=== PATIENT | female | born 1930 | race Caucasian/White ===

== ENCOUNTER 2018-09-04 13:08 | Emergency (ER) | payer OTHER ==
--- OUTSIDE RECORDS SUMMARY | 2018-09-04 13:11 | XMS REPORT | Clinical Summary ---
:1930 Author Organization [facility] Address [address] [place] [address] Care Team Providers Name Role Phone Sharpdaria Primary Care Provider Allergies Active Allergy Reactions Severity Noted Date Comments Penicillins Rash Low 07/17/2015 Medications Medication Sig Dispensed Refills Start Date End Date Status amLODIPine (NORVASC) 10 MG Take 10 mg 0 Active tabletIndications: by mouth hypertension daily. memantine (NAMENDA) 10 MG Take 10 mg 0 Active tablet by mouth daily. cholecalciferol (VITAMIN D3) Take 1,000 0 Active 1,000 unit Units by tabletIndications: mouth daily. osteomalacia metoprolol (TOPROL-XL) 100 Take 100 mg 0 Active MG 24 hr tabletIndications: by mouth hypertension daily. pravastatin (PRAVACHOL) 40 Take 40 mg 0 Active MG tabletIndications: by mouth hypercholesterolemia nightly. raloxifene (EVISTA) 60 mg Take 60 mg 0 Active tabletIndications: by mouth Post-Menopausal Osteoporosis daily. omeprazole (PRILOSEC) 20 MG Take 20 mg 0 Active capsuleIndications: by mouth gastroesophageal reflux daily. disease metaxalone (SKELAXIN) 800 MG Take 800 mg 0 Active tablet by mouth nightly. Active Problems Problem Noted Date Colitis 01/08/2016 Diarrhea 01/08/2016 Loss of appetite 01/08/2016 Dehydration 01/08/2016 Abdominal pain 01/08/2016 Muscle spasm 01/08/2016 GERD (gastroesophageal reflux disease) 01/08/2016 Ischemic colitis 07/17/2015 Immunizations Name Dates Previously Given Next Due Influenza Three-TIV PF 4+YRS 07/18/2015 Social History Tobacco Use Types Packs/Day Years Used Date Former Smoker Quit: 12/15/1974 Alcohol Use Drinks/Week oz/Week Comments No Sex Assigned at Date Recorded Not on file Job Start Date Occupation Industry Not on file Not on file Not on file Travel History Travel Start Travel End No recent travel history available. Last Filed Vital Signs Not on file Plan of Treatment Not on file Results Not on fileafter 09/03/2017 Insurance Payer Benefit Plan / Group Subscriber ID Type Phone Address MEDICARE MEDICARE A B xxxxxxxxxx Medicare AETNA - [place]GD CARE AETNA INDEMNITY NON CONTR xxxxxxxxxx Comm Advance Directives For more information, please contact:[address] [phone] Code Status Date Activated Date Inactivated Comments Full Code 07/17/2015 3:50 AM 07/19/2015 9:20 PM Per MD's order, verbalized by patient's daughter Mary This code status was determined by: Patient
--- NOTE | 2018-09-04 14:16 | RAD REPORT ---
EXAM DESCRIPTION: Eva Single View09/04/2018 1:55 pm CLINICAL HISTORY: cough COMPARISON: none FINDINGS: The lungs appear clear of acute infiltrate. The heart is normal size IMPRESSION: No acute abnormalities displayed
[2018-09-04 14:19] LABS: Absolute Lymphocytes (CBC) 1.9 K/uL (0.7-4.9); Absolute Monocytes 1.1 K/uL (0.1-1.3); Basophils % 0.5 % (0-1.3); Eosinophils % 0.1 % (0-4.4); Lymphocytes % 17.4 % (15.3-44.8); MCH 29.9 pg (27.0-35.0); MCV 87.9 fL (80-100); Monocytes % 10.1 % (3.3-12.3); RBC Red Blood Cell Count 4.89 M/uL (3.86-4.86)
[2018-09-04] MEDS ORDERED: AZITHROMYCIN 500 MG/250 ML BAG ONE (14:22)
[2018-09-04 14:30] LABS: Protime INR 1.07
[2018-09-04 14:40] LABS: ALT/SGPT 16 U/L (12-78); AST/SGOT 17 U/L (15-37); Albumin 3.9 g/dL (3.4-5.0); Alkaline Phosphatase 157 U/L (45-117); BUN Blood Urea Nitrogen 21 mg/dL (7-18); Bicarbonate 28 mmol/L (21-32); Bilirubin Direct 0.2 mg/dL (0-0.2); Bilirubin Total 0.6 mg/dL (0.2-1.0); CKMB Creatine Kinase MB < 1.0 ng/mL (0.3-3.6); Creatine Phosphokinase 52 U/L (26-192); Glucose Level 99 mg/dL (74-106); Lipase 176 U/L (73-393); Magnesium 2.3 mg/dL (1.8-2.4); NT PRO-BNP 1265 pg/mL (<450); Potassium 3.9 mmol/L (3.5-5.1); Sodium Level 140 mmol/L (136-145); Troponin (Emerg Dept Use Only) < 0.02 ng/mL (0.0-0.045)
--- NOTE | 2018-09-04 14:44 | EKG ---
Test Date: 2018-09-04 Test Time: 13:55:57 Director Volunteer Services: MAYE MEASUREMENT RESULTS: Intervals: Rate: 81 WV: 156 QRSD: 78 QT: 380 QTc: 441 Homer: P: 63 WV: 156 QRS: 0 T: 27 INTERPRETIVE STATEMENTS: Normal sinus rhythm Nonspecific ST and T wave abnormality Abnormal ECG Compared to ECG 07/30/2016 20:11:33 ST (T wave) deviation now present Atrial premature complex(es) no longer present Electronically Signed On 09-04-18 14:44:00 TEST ENG by Yaniv Levin
--- NOTE | 2018-09-04 15:51 | RAD REPORT ---
EXAM DESCRIPTION: CT - Chest For Pe Angio - 09/04/2018 3:19 pm CLINICAL HISTORY: Shortness of breath for 1 week COMPARISON: None. TECHNIQUE: Dynamically enhanced axial 3 mm thick images of the chest were obtained during administra tion of <100> mL Isovue 370 IV contrast. Coronal and oblique reconstruction images were generated and reviewed. Exam utilizes a protocol for optimal evaluation of pulmonary arterial tree. Maximum intensity projections 3D imaging was utilized All CT scans are performed using dose optimization technique as appropriate and may include automated exposure control or mA/KV adjustment according to patient size. FINDINGS: A pulmonary embolus is not seen. A thoracic aortic aneurysm is not noted. A pleural effusion is not seen. A pericardial effusion is not seen. A lung consolidation is not present. IMPRESSION: Negative for a pulmonary embolism.
--- NOTE | 2018-09-04 16:15 | EDPHYS ---
Physician Documentation [facility] Name: Wellington Wood Age: 88 yrs Sex: Female : 1930 Arrival Date: 09/04/2018 Time: 13:09 Bed 27 Private MD: ED Physician Karen Mariscal HPI: 09/04 13:43 This 88 yrs old Female presents to ER via Wheelchair with complaints of Cough.ma2 13:43 Onset: The symptoms/episode began/occurred gradually, 2 day(s) ago. Severity of ma2 symptoms: At their worst the symptoms were moderate, in the emergency department the symptoms are unchanged. Modifying factors: The symptoms are alleviated by nothing. Associated signs and symptoms: Pertinent negatives: chest pain, diarrhea, fever, rhinorrhea, sore throat. The patient has experienced similar episodes in the past. Historical: - Allergies: 13:32 PENICILLINS; aa5 - PMHx: 13:32 Dementia; High Cholesterol; Hypertension; aa5 - PSHx: 13:32 Hysterectomy; back surgery; Tonsillectomy; aa5 - Immunization history:: Pneumococcal vaccine status is unknown, Flu vaccine is up to date. - Social history:: Smoking status: Patient/guardian denies using tobacco, Patient/guardian denies using alcohol, street drugs, The patient lives with family. - Ebola Screening: : No symptoms or risks identified at this time. - Family history:: not pertinent. ROS: 13:43 Eyes: Negative for injury, pain, redness, and discharge, ENT: Negative for injury, ma2 pain, and discharge, Neck: Negative for injury, pain, and swelling, Cardiovascular: Negative for chest pain, palpitations, and edema, Abdomen/GI: Negative for abdominal pain, nausea, diarrhea, and constipation, Back: Negative for injury and pain, : Negative for injury, bleeding, discharge, and swelling. 13:43 Constitutional: Positive for fever, Negative for chills, fatigue, malaise, poor PO intake. 13:43 Respiratory: Positive for cough, Negative for dyspnea on exertion, hemoptysis, orthopnea, shortness of breath, sputum production. 13:43 All other systems are negative. Exam: 13:43 Constitutional: This is a well developed, well nourished patient who is awake, alert, ma2 and in no acute distress. Chest/axilla: Normal chest wall appearance and motion. Nontender with no deformity. No lesions are appreciated. Cardiovascular: Regular rate and rhythm with a normal S1 and S2. No gallops, murmurs, or rubs. Normal PMI, no JVD. No pulse deficits. Respiratory: Lungs have equal breath sounds bilaterally, clear to auscultation and percussion. No rales, rhonchi or wheezes noted. No increased work of breathing, no retractions or nasal flaring. Abdomen/GI: Soft, non-tender, with normal bowel sounds. No distension or tympany. No guarding or rebound. No evidence of tenderness throughout. MS/ Extremity: Pulses equal, no cyanosis. Neurovascular intact. Full, normal range of motion. Neuro: Awake and alert, GCS 15, oriented to person, place, time, and situation. Cranial nerves II-XII grossly intact. Motor strength 5/5 in all extremities. Sensory grossly intact. Cerebellar exam normal. Normal gait. Vital Signs: 13:33 BP 147 / 67; Pulse 78; Resp 18 S; Temp 99.8(O); Pulse Ox 96% on R/A; Weight 66.22 kg aa5 (R); Height 5 ft. 0 in. (152.40 cm) (R); Pain 0/10; 15:30 BP 138 / 74; Pulse 80; Resp 17; Temp 98.2; Pulse Ox 97% on R/A; kr2 16:30 BP 144 / 70; Pulse 74; Resp 17; Pulse Ox 97% on R/A; kr2 13:33 Body Mass Index 28.51 (66.22 kg, 152.40 cm) aa5 MDM: 13:37 Patient medically screened. ma2 13:43 Differential Diagnosis: Bronchitis Influenza Upper Respiratory Infection Sinusitis. ma2 16:12 Data reviewed: vital signs, nurses notes, lab test result(s), EKG, radiologic studies. ma2 Counseling: I had a detailed discussion with the patient and/or guardian regarding: the historical points, exam findings, and any diagnostic results supporting the discharge/admit diagnosis, the presence of at least one elevated blood pressure reading (>120/80) during this emergency department visit, the need for outpatient follow up. ED course: d dimer elevated ct pe negative likely uri vs wnl, workup unremarkable including normal WBC.. bnp is elevated however given normal cxr and symptoms of sore throat,, acute chf unlikely will f/u with pcp . 09/04 13:42 Order name: Blood Culture Adult (2) [facility] 09/04 13:42 Order name: BMP [facility] 09/04 13:42 Order name: CBC with Diff [facility] 09/04 13:42 Order name: Ckmb [facility] 09/04 13:42 Order name: CPK [facility] 09/04 13:42 Order name: D-Dimer [facility] 09/04 13:42 Order name: Hepatic Function; Complete Time: 15:36 [facility] 09/04 13:42 Order name: Lipase; Complete Time: 15:36 [facility] 09/04 13:42 Order name: Magnesium; Complete Time: 15:36 [facility] 09/04 13:42 Order name: NT PRO-BNP; Complete Time: 15:36 [facility] 09/04 13:42 Order name: PT-INR; Complete Time: 14:36 [facility] 09/04 13:42 Order name: Ptt, Activated; Complete Time: 14:36 [facility] 09/04 13:42 Order name: Troponin (emerg Dept Use Only); Complete Time: 15:36 [facility] 09/04 13:43 Order name: Blood Culture [facility] 09/04 13:42 Order name: XRAY CXR (1 view); Complete Time: 14:19 [facility] 09/04 13:42 Order name: EKG; Complete Time: 13:44 [facility] 09/04 13:42 Order name: Cardiac monitoring; Complete Time: 14:22 [facility] 09/04 13:42 Order name: EKG - Nurse/Tech; Complete Time: 14:22 [facility] 09/04 13:42 Order name: IV Saline Lock; Complete Time: 14:22 [facility] 09/04 13:42 Order name: Labs collected and sent; Complete Time: 14:22 [facility] 09/04 13:42 Order name: O2 Per Protocol; Complete Time: 14:22 [facility] 09/04 13:42 Order name: O2 Sat Monitoring; Complete Time: 14:23 [facility] 09/04 13:43 Order name: Basic Metabolic Panel; Complete Time: 15:36 [facility] 09/04 13:43 Order name: CBC with Automated Diff; Complete Time: 14:36 [facility] 09/04 13:43 Order name: CKMB Creatine Kinase MB; Complete Time: 15:36 [facility] 09/04 13:43 Order name: Creatine Phosphokinase; Complete Time: 15:36 [facility] 09/04 13:43 Order name: D-Dimer; Complete Time: 14:36 [facility] 09/04 14:37 Order name: CT Chest For PE Angio; Complete Time: 16:12 ne2 Administered Medications: 14:18 Drug: AZITHromycin 500 mg Route: IVPB; Infused Over: 1 hrs; Site: right antecubital; kr2 15:30 Follow up: Response: No adverse reaction; IV Status: Completed infusion kr2 Disposition: 09/04/18 16:15 Discharged to Home. Impression: Acute upper respiratory infection, unspecified. - Condition is Stable. - Discharge Instructions: Upper Respiratory Infection, Adult. - Prescriptions for Tylenol- Codeine #3 300-30 mg Oral Tablet - take 2 tablet by ORAL route every 6 hours As needed; 30 tablet. Zithromax Z- Alfred 250 mg Oral Tablet - take 1 tablet by ORAL route as directed for 5 days Day 1 - take two (2) tablets one time. Day 2, 3, 4 , 5 take one (1) tablet once daily.; 6 tablet. - Medication Reconciliation Form, Thank You Letter, Antibiotic Education, Prescription Opioid Use form. - Follow up: Private Physician; When: Tomorrow; Reason: Continuance of care. - Problem is new. - Symptoms are unchanged. Signatures: Dispatcher [employer] [facility] Nimo Jeffers RN RN aa5 Maura Short RN RN kr2 Karen Mariscal MD MD ma2 Corrections: (The following items were deleted from the chart) 16:39 16:15 09/04/2018 16:15 Discharged to Home. Impression: Acute upper respiratory kr2 infection, unspecified. Condition is Stable. Forms are Medication Reconciliation Form, Thank You Letter, Antibiotic Education, Prescription Opioid Use. Follow up: Private Physician; When: Tomorrow; Reason: Continuance of care. Problem is new. Symptoms are unchanged. ma2
--- NOTE | 2018-09-04 16:15 | ER ---
Nurse's Notes [facility] Name: Wellington Wood Age: 88 yrs Sex: Female : 1930 Arrival Date: 09/04/2018 Time: 13:09 Bed 27 Private MD: Diagnosis: Acute upper respiratory infection, unspecified Presentation: 09/04 13:31 Presenting complaint: Patient states: cough that began 1 week ago. Pt reports being aa5 seen by Dr. Bolden and given Claritin. Pt also reports fever up to 100.1 Today. Transition of care: patient was not received from another setting of care. Onset of symptoms was August 2018. Risk Assessment: Do you want to hurt yourself or someone else? Patient reports no desire to harm self or others. Initial Sepsis Screen: Does the patient meet any 2 criteria? No. Patient's initial sepsis screen is negative. Does the patient have a suspected source of infection? No. Patient's initial sepsis screen is negative. Care prior to arrival: None. 13:31 Method Of Arrival: Wheelchair aa5 13:31 Acuity: ESE 3 aa5 Triage Assessment: 13:45 General: Appears in no apparent distress. comfortable, Behavior is calm, cooperative, kr2 appropriate for age. Historical: - Allergies: 13:32 PENICILLINS; aa5 - PMHx: 13:32 Dementia; High Cholesterol; Hypertension; aa5 - PSHx: 13:32 Hysterectomy; back surgery; Tonsillectomy; aa5 - Immunization history:: Pneumococcal vaccine status is unknown, Flu vaccine is up to date. - Social history:: Smoking status: Patient/guardian denies using tobacco, Patient/guardian denies using alcohol, street drugs, The patient lives with family. - Ebola Screening: : No symptoms or risks identified at this time. - Family history:: not pertinent. Screenin:00 Abuse screen: Denies threats or abuse. Denies injuries from another. Nutritional kr2 screening: No deficits noted. Tuberculosis screening: No symptoms or risk factors identified. Fall Risk Ambulatory Aid- Crutches/Cane/Walker (15 pts). Assessment: 13:45 General: Appears in no apparent distress. comfortable, well groomed, well developed, kr2 well nourished, Behavior is calm, cooperative, appropriate for age. Pain: Denies pain. Neuro: Level of Consciousness is awake, alert, obeys commands, Oriented to person, place, time, situation. Cardiovascular: Capillary refill < 3 seconds in bilateral fingers Patient's skin is warm and dry. Rhythm is regular. Respiratory: Reports cough that is persistent since 1 week ago Airway is patent Respiratory effort is even, unlabored, Respiratory pattern is regular, symmetrical, Breath sounds are clear bilaterally. GI: Abdomen is flat, non-distended, Bowel sounds present X 4 quads. : Denies burning with urination. EENT: Oral mucosa is moist. Derm: Skin is intact, is healthy with good turgor, Skin is pink, warm \T\ dry. Musculoskeletal: Circulation, motion, and sensation intact. 14:30 Reassessment: Patient appears in no apparent distress at this time. Patient and/or kr2 family updated on plan of care and expected duration. Pain level reassessed. Patient is alert, oriented x 3, equal unlabored respirations, skin warm/dry/pink. Patient denies pain at this time. 15:30 Reassessment: Patient appears in no apparent distress at this time. Patient and/or kr2 family updated on plan of care and expected duration. Pain level reassessed. Patient is alert, oriented x 3, equal unlabored respirations, skin warm/dry/pink. Patient denies pain at this time. 16:30 Reassessment: No changes from previously documented assessment. kr2 Vital Signs: 13:33 BP 147 / 67; Pulse 78; Resp 18 S; Temp 99.8(O); Pulse Ox 96% on R/A; Weight 66.22 kg aa5 (R); Height 5 ft. 0 in. (152.40 cm) (R); Pain 0/10; 15:30 BP 138 / 74; Pulse 80; Resp 17; Temp 98.2; Pulse Ox 97% on R/A; kr2 16:30 BP 144 / 70; Pulse 74; Resp 17; Pulse Ox 97% on R/A; kr2 13:33 Body Mass Index 28.51 (66.22 kg, 152.40 cm) aa5 ED Course: 13:09 Patient arrived in ED. aa5 13:31 Arm band placed on. aa5 13:32 Triage completed. aa5 13:37 Karen Mariscal MD is Attending Physician. ma2 13:43 Deja, Maura, RN is Primary Nurse. kr2 13:45 Patient has correct armband on for positive identification. Bed in low position. Call kr2 light in reach. Side rails up X 1. Pulse ox on. NIBP on. Door closed. Head of bed elevated. 13:54 XRAY CXR (1 view) In Process Unspecified. EDMS 14:00 Inserted saline lock: 22 gauge in right antecubital area, using aseptic technique. kr2 Blood collected. 14:13 EKG done, by low voltage technician. reviewed by Karen Mariscal MD. at1 14:[address] via stretcher. vm2 15:19 CT Chest For PE Angio In Process Unspecified. EDMS 16:30 No provider procedures requiring assistance completed. IV discontinued, intact, kr2 bleeding controlled, No redness/swelling at site. Pressure dressing applied. Administered Medications: 14:18 Drug: AZITHromycin 500 mg Route: IVPB; Infused Over: 1 hrs; Site: right antecubital; kr2 15:30 Follow up: Response: No adverse reaction; IV Status: Completed infusion kr2 Outcome: 16:15 Discharge ordered by . ma2 16:30 Discharged to home via wheelchair, with family. kr2 16:30 Condition: good 16:30 Instructed on discharge instructions, follow up and referral plans. medication usage, Demonstrated understanding of instructions, follow-up care, medications, Prescriptions given X 2. 16:39 Patient left the ED. kr2 Signatures: Dispatcher [employer] EDMS Nimo Jeffers RN RN aa5 Hemalatha Grace, electrical panel builder EKG Tat1 Rani Adames vm2 Maura Short, BONG RN kr2 Karen Mariscal MD MD tn2 Corrections: (The following items were deleted from the chart) 22:49 13:45 Door closed. Warm blanket given. Head of bed elevated. kr2 kr2 23:07 15:30 BP 138 / 74; Pulse 80bpm; Resp 17bpm; Pulse Ox 97% RA; kr2 kr2
[2018-09-04 16:56] VITALS: BP 147/67; TEMP 99.8; O2SAT 96
== END 2018-09-04 16:39 | disposition home or self-care (01) ==
LOC: ER 13:08
DX: J06.9 Acute upper respiratory infection, unspecified (principal); I10 Essential (primary) hypertension; F03.90 Unspecified dementia, unspecified severity, without behavioral disturbance, psychotic disturbance, mood disturbance, and anxiety; Z88.0 Allergy status to penicillin
CPT/HCPCS: 36415; 71045; 71275; 80048; 80076; 82550; 82553; 83690; 83735; 83880; 84484; 85025; 85379; 85610; 85730; 87040 ×2; 93005; 96365; 99285; J0456; Q9967

== ENCOUNTER 2018-11-21 12:28 | Emergency (ER) | payer OTHER ==
--- OUTSIDE RECORDS SUMMARY | 2018-11-21 12:35 | XMS REPORT | Clinical Summary ---
:1930 Author Organization [facility] Address [address] [place] [address] Care Team Providers Name Role Phone Sharpdaria [...] Not on file Results Not on fileafter 11/20/2017 Insurance Payer Benefit Plan / Group Subscriber ID Type Phone Address MEDICARE MEDICARE A B xxxxxxxxxx Medicare AETNA - MGD CARE AETNA INDEMNITY NON CONTR xxxxxxxxxx Comm Advance Directives For more information, please contact:[address] [phone] Code Status Date Activated Date Inactivated Comments Full Code 07/17/2015 3:50 AM 07/19/2015 9:20 PM Per MD's order, verbalized by patient's daughter Mary This code status was determined by: Patient
[2018-11-21 16:01] LABS: Hematocrit 42.7 % (36.0-45.0); MPV 10.4 fL (7.6-11.3); RBC Red Blood Cell Count 4.88 M/uL (3.86-4.86)
--- NOTE | 2018-11-21 17:14 | EDPHYS ---
Physician Documentation [facility] Name: Wellington Wood Age: 88 yrs Sex: Female : 1930 Arrival Date: 11/21/2018 Time: 12:41 Bed 11 Private MD: ED Physician Karen Mariscal HPI: 11/21 16:08 This 88 yrs old Female presents to ER via Wheelchair with complaints of ma2 Urinary Problem. 16:08 The patient presents with dark urine x 1 day, urinary frequency and take nitrofurantoin ma2 x 2 days . Onset: The symptoms/episode began/occurred gradually, 2 day(s) ago. Associated signs and symptoms: Pertinent positives: urinary frequency, Pertinent negatives: dyspareunia, fever, vaginal discharge. Severity of symptoms: At their worst the symptoms were mild, in the emergency department the symptoms have resolved. The patient has experienced similar episodes in the past. Historical: - Allergies: 12:57 PENICILLINS; hb - Home Meds: 12:57 amlodipine 10 mg tab 1 tab once daily [Active]; aspirin 81 mg Oral TbEC 1 tab once hb daily [Active]; Colace 50 mg Oral cap 1 cap 2 times per day [Active]; Evista 60 mg Oral tab 1 tab once daily [Active]; losartan 100 mg Oral tab 1 tab once daily [Active]; metoprolol tartrate 100 mg Oral tab 1 tab once daily [Active]; multivitamins with iron [Active]; omeprazole 20 mg Oral TbEC daily [Active]; pravastatin 40 mg Oral tab 1 tab once daily [Active]; prevagen [Active]; Skelaxin 800 mg Oral tab 1 tab daily [Active]; Namzaric 28-10 mg Oral CSpX 1 cap once daily [Active]; Vitamin D-3 with Aloe 120-1,000-10 mg-unit-mg Oral tab [Active]; - PMHx: 12:57 High Cholesterol; Dementia; Hypertension; hb - PSHx: 12:57 Hysterectomy; back surgery; Tonsillectomy; hb - Immunization history:: Flu vaccine status is unknown. - Social history:: Patient/guardian denies using alcohol, street drugs, The patient lives with family, Smoking status: unknown. - Family history:: not pertinent. - Ebola Screening: : No symptoms or risks identified at this time. ROS: 16:08 Positive for urinary symptoms, urinary frequency, Negative for injury or acute ma2 deformity, flank pain, burning with urination, bladder incontinence, vaginal itching, missed period, acute changes. 16:08 Constitutional: Negative for fever, chills, and weight loss, Eyes: Negative for injury, pain, redness, and discharge, Cardiovascular: Negative for chest pain, palpitations, and edema, Respiratory: Negative for shortness of breath, cough, wheezing, and pleuritic chest pain, Abdomen/GI: Negative for abdominal pain, nausea, diarrhea, and constipation. 16:08 All other systems are negative. Exam: 16:08 Constitutional: This is a well developed, well nourished patient who is awake, alert, ma2 and in no acute distress. Chest/axilla: Normal chest wall appearance and motion. Nontender with no deformity. No lesions are appreciated. Cardiovascular: Regular rate and rhythm with a normal S1 and S2. No gallops, murmurs, or rubs. Normal PMI, no JVD. No pulse deficits. Respiratory: Lungs have equal breath sounds bilaterally, clear to auscultation and percussion. No rales, rhonchi or wheezes noted. No increased work of breathing, no retractions or nasal flaring. Abdomen/GI: Soft, non-tender, with normal bowel sounds. No distension or tympany. No guarding or rebound. No evidence of tenderness throughout. Back: No spinal tenderness. No costovertebral tenderness. Full range of motion. MS/ Extremity: Pulses equal, no cyanosis. Neurovascular intact. Full, normal range of motion. Neuro: Awake and alert, GCS 15, oriented to person, place, time, and situation. Cranial nerves II-XII grossly intact. Motor strength 5/5 in all extremities. Sensory grossly intact. Cerebellar exam normal. Normal gait. Vital Signs: 12:56 BP 151 / 60; Pulse 84; Resp 16; Temp 97.4; Pulse Ox 100% on R/A; Pain 0/10; hb MDM: 14:33 Patient medically screened. ma2 16:08 Differential diagnosis: nonspecific abdominal pain, urinary tract infection, has ma2 hematuria d/t uti. 17:13 Data reviewed: vital signs, nurses notes. Counseling: I had a detailed discussion with ma2 the patient and/or guardian regarding: the historical points, exam findings, and any diagnostic results supporting the discharge/admit diagnosis, the presence of at least one elevated blood pressure reading (>120/80) during this emergency department visit, the need for outpatient follow up. ED course: HB stable will f/u with her pcp . 11/21 14:15 Order name: Urine Dipstick--Ancillary (enter results) mw2 11/21 14:50 Order name: CBC w/o diff; Complete Time: 17:13 ma2 Administered Medications: No medications were administered Disposition: 11/21/18 17:14 Discharged to Home. Impression: Cystitis, unspecified with hematuria. - Condition is Stable. - Discharge Instructions: Urinary Tract Infection, Adult. - Medication Reconciliation Form, Thank You Letter, Antibiotic Education, Prescription Opioid Use form. - Follow up: Private Physician; When: Tomorrow; Reason: Continuance of care. Signatures: Dispatcher [employer] EDMS Rowena Liu RN RN Karen Mariscal MD MD ma2 Calvin Giron RN RN mg2 Corrections: (The following items were deleted from the chart) 17:36 17:14 11/21/2018 17:14 Discharged to Home. Impression: Cystitis, unspecified with mg2 hematuria. Condition is Stable. Forms are Medication Reconciliation Form, Thank You Letter, Antibiotic Education, Prescription Opioid Use. Follow up: Private Physician; When: Tomorrow; Reason: Continuance of care. ma2
--- NOTE | 2018-11-21 17:14 | ER ---
Nurse's Notes [facility] Name: Wellington Wood Age: 88 yrs Sex: Female : 1930 Arrival Date: 11/21/2018 Time: 12:41 Bed 11 Private MD: Diagnosis: Cystitis, unspecified with hematuria Presentation: 11/21 12:53 Presenting complaint: Recently seen at [facility] for UTI, on nitrofurantoin Day 4, hb daughter noticed dark urine this morning, concerned about possible blood in urine. Pt reports urinary frequency, denies burning with urination/abd pain/fever. Transition of care: patient was not received from another setting of care. Onset of symptoms was November 21, 2018. Risk Assessment: Do you want to hurt yourself or someone else? Patient reports no desire to harm self or others. Care prior to arrival: None. 12:53 Method Of Arrival: Wheelchair hb 12:53 Acuity: ESE 4 hb 17:35 Initial Sepsis Screen: Does the patient meet any 2 criteria? No. Patient's initial mg2 sepsis screen is negative. Does the patient have a suspected source of infection? No. Patient's initial sepsis screen is negative. Triage Assessment: 17:35 General: Appears in no apparent distress. comfortable, Behavior is calm, cooperative. mg2 Pain: Denies pain. Historical: - Allergies: 12:57 PENICILLINS; hb - Home Meds: 12:57 amlodipine 10 mg tab 1 tab once daily [Active]; aspirin 81 mg Oral TbEC 1 tab once hb daily [Active]; Colace 50 mg Oral cap 1 cap 2 times per day [Active]; Evista 60 mg Oral tab 1 tab once daily [Active]; losartan 100 mg Oral tab 1 tab once daily [Active]; metoprolol tartrate 100 mg Oral tab 1 tab once daily [Active]; multivitamins with iron [Active]; omeprazole 20 mg Oral TbEC daily [Active]; pravastatin 40 mg Oral tab 1 tab once daily [Active]; prevagen [Active]; Skelaxin 800 mg Oral tab 1 tab daily [Active]; Namzaric 28-10 mg Oral CSpX 1 cap once daily [Active]; Vitamin D-3 with Aloe 120-1,000-10 mg-unit-mg Oral tab [Active]; - PMHx: 12:57 High Cholesterol; Dementia; Hypertension; hb - PSHx: 12:57 Hysterectomy; back surgery; Tonsillectomy; hb - Immunization history:: Flu vaccine status is unknown. - Social history:: Patient/guardian denies using alcohol, street drugs, The patient lives with family, Smoking status: unknown. - Family history:: not pertinent. - Ebola Screening: : No symptoms or risks identified at this time. Screenin:57 Abuse screen: Denies threats or abuse. Denies injuries from another. Nutritional hb screening: No deficits noted. Tuberculosis screening: No symptoms or risk factors identified. Fall Risk None identified. Assessment: 17:35 Reassessment: patient didn't sign the discharge papers. mg2 Vital Signs: 12:56 BP 151 / 60; Pulse 84; Resp 16; Temp 97.4; Pulse Ox 100% on R/A; Pain 0/10; hb ED Course: 12:41 Patient arrived in ED. as 12:56 Triage completed. hb 12:56 Arm band placed on right wrist. hb 14:33 Karen Mariscal MD is Attending Physician. [facility] 14:48 Calvin Giron, RN is Primary Nurse. mg2 17:35 Allergy band placed. mg2 17:35 No provider procedures requiring assistance completed. Patient did not have IV access mg2 during this emergency room visit. Administered Medications: No medications were administered Outcome: 17:14 Discharge ordered by . ma 17:34 Discharged to home via wheelchair, with family. mg2 17:34 Condition: stable 17:34 Discharge instructions given to patient, Instructed on discharge instructions, follow up and referral plans. Demonstrated understanding of instructions, follow-up care. 17:36 Patient left the ED. mg2 Signatures: Dayanara Acosta Heather, RN RN Karen Mariscal MD MD ma2 Gardose, Michele, RN RN mg2
[2018-11-21 17:59] VITALS: BP 112/64; TEMP 98.9; O2SAT 99
[2018-11-21 19:40] LABS: Urine Blood TRACE (NEG); Urine Glucose NEGATIVE (NEG); Urine Protein 1+ (NEG); Urine pH 6.5 (5.0-7.0)
== END 2018-11-21 17:36 | disposition home or self-care (01) ==
LOC: ER 12:28
DX: N30.91 Cystitis, unspecified with hematuria (principal); E78.00 Pure hypercholesterolemia, unspecified; F03.90 Unspecified dementia, unspecified severity, without behavioral disturbance, psychotic disturbance, mood disturbance, and anxiety; I10 Essential (primary) hypertension; Z79.82 Long term (current) use of aspirin; Z88.0 Allergy status to penicillin
CPT/HCPCS: 36415; 81003; 85027; 99281

== ENCOUNTER 2018-12-08 21:33 | Observation (INO) | payer OTHER ==
--- OUTSIDE RECORDS SUMMARY | 2018-12-08 21:35 | XMS REPORT | Clinical Summary ---
:1930 Author Organization [facility] Address [address] [place] [address] Care Team Providers Name Role Phone Sharpdaria [...] Not on file Results Not on fileafter 12/07/2017 Insurance Payer Benefit Plan / Group Subscriber ID Type Phone Address MEDICARE MEDICARE A B xxxxxxxxxx Medicare AETNA - MGD CARE AETNA INDEMNITY NON CONTR xxxxxxxxxx Comm Advance Directives For more information, please contact:[address] [phone] Code Status Date Activated Date Inactivated Comments Full Code 07/17/2015 3:50 AM 07/19/2015 9:20 PM Per MD's order, verbalized by patient's daughter Mary This code status was determined by: Patient
[2018-12-08] MEDS ORDERED: NA CHLORIDE 0.9% 500 ML ONE (22:48)
[2018-12-08] MEDS ORDERED: NA CHLORIDE 0.9% 1,000 ML ONE (22:48)
[2018-12-08 23:04] LABS: Absolute Lymphocytes (CBC) 2.6 K/uL (0.7-4.9); Absolute Monocytes 0.7 K/uL (0.1-1.3); Absolute Neutrophil 5.9 K/uL (1.8-8.0); Basophils % 0.4 % (0-1.3); Eosinophils % 1.1 % (0-4.4); Hematocrit 40.7 % (36.0-45.0); Lymphocytes % 28.1 % (15.3-44.8); Monocytes % 7.6 % (3.3-12.3); RBC Red Blood Cell Count 4.62 M/uL (3.86-4.86)
[2018-12-08 23:25] LABS: ALT/SGPT 14 U/L (12-78); AST/SGOT 15 U/L (15-37); Albumin 3.4 g/dL (3.4-5.0); Alkaline Phosphatase 167 U/L (45-117); BUN Blood Urea Nitrogen 17 mg/dL (7-18); Bicarbonate 30 mmol/L (21-32); Bilirubin Direct 0.1 mg/dL (0-0.2); Bilirubin Total 0.4 mg/dL (0.2-1.0); Glucose Level 110 mg/dL (74-106); Lipase 232 U/L (73-393); NT PRO-BNP 696 pg/mL (<450); Potassium 3.9 mmol/L (3.5-5.1); Protein, Total 6.8 g/dL (6.4-8.2); Sodium Level 143 mmol/L (136-145); Troponin (Emerg Dept Use Only) < 0.02 ng/mL (0.0-0.045)
[2018-12-08 23:32] LABS: Protime INR 1.07
--- NOTE | 2018-12-08 23:32 | EDPHYS ---
Physician Documentation [facility] Name: Wellington Wood Age: 88 yrs Sex: Female : 1930 Arrival Date: 12/08/2018 Time: 21:37 Bed 4 Private MD: Bk Westbrook ED Physician Devin Zhao HPI: 12/08 22:32 This 88 yrs old Female presents to ER via EMS with complaints of Near Syncope.sammi 22:32 The patient has experienced near-syncope. Onset: The symptoms/episode began/occurred sammi just prior to arrival. Duration: This was a single episode, that lasted 20 minute(s). Context: occurred at home. Associated injury: The patient did not suffer any apparent associated injury. Associated signs and symptoms: Pertinent positives: diaphoresis, lightheadedness, nausea, shortness of breath. Historical: - Allergies: 21:40 PENICILLINS; rr5 - Home Meds: 21:40 amlodipine 10 mg tab 1 tab once daily [Active]; Vitamin D-3 with Aloe 120-1,000-10 rr5 mg-unit-mg Oral tab [Active]; losartan 100 mg Oral tab 1 tab once daily [Active]; prevagen [Active]; multivitamins with iron [Active]; Namzaric 28-10 mg Oral CSpX 1 cap once daily [Active]; metoprolol tartrate 100 mg Oral tab 1 tab once daily [Active]; pravastatin 40 mg Oral tab 1 tab once daily [Active]; Evista 60 mg Oral tab 1 tab once daily [Active]; omeprazole 20 mg Oral TbEC daily [Active]; Skelaxin 800 mg Oral tab 1 tab daily [Active]; Colace 50 mg Oral cap 1 cap 2 times per day [Active]; Aricept 10 mg Oral tab [Active]; aspirin 81 mg Oral TbEC 1 tab once daily [Active]; - PMHx: 21:40 Dementia; High Cholesterol; Hypertension; Alzheimers; rr5 - PSHx: 21:40 Heart stents; Hysterectomy; lumbar surgery; rr5 - Immunization history:: Adult Immunizations up to date. - Social history:: Smoking status: Patient/guardian denies using tobacco, Patient/guardian denies using alcohol, street drugs. - Ebola Screening: : Patient negative for fever greater than or equal to 101.5 degrees Fahrenheit, and additional compatible Ebola Virus Disease symptoms Patient denies exposure to infectious person Patient denies travel to an Ebola-affected area in the 21 days before illness onset. - Family history:: not pertinent. ROS: 22:32 Constitutional: Negative for fever, chills, and weight loss, Eyes: Negative for injury, sammi pain, redness, and discharge, ENT: Negative for injury, pain, and discharge, Neck: Negative for injury, pain, and swelling, Cardiovascular: Negative for chest pain, palpitations, and edema, Respiratory: Negative for shortness of breath, cough, wheezing, and pleuritic chest pain, Abdomen/GI: Negative for abdominal pain, nausea, vomiting, diarrhea, and constipation, Back: Negative for injury and pain, : Negative for injury, bleeding, discharge, and swelling, MS/Extremity: Negative for injury and deformity, Skin: Negative for injury, rash, and discoloration, Neuro: Negative for headache, weakness, numbness, tingling, and seizure, Psych: Negative for depression, anxiety, suicide ideation, homicidal ideation, and hallucinations, Allergy/Immunology: Negative for hives, rash, and allergies, Endocrine: Negative for neck swelling, polydipsia, polyuria, polyphagia, and marked weight changes, Hematologic/Lymphatic: Negative for swollen nodes, abnormal bleeding, and unusual bruising. Exam: 22:33 Constitutional: This is a well developed, well nourished patient who is awake, alert, sammi and in no acute distress. Head/Face: Normocephalic, atraumatic. Eyes: Pupils equal round and reactive to light, extra-ocular motions intact. Lids and lashes normal. Conjunctiva and sclera are non-icteric and not injected. Cornea within normal limits. Periorbital areas with no swelling, redness, or edema. ENT: Nares patent. No nasal discharge, no septal abnormalities noted. Tympanic membranes are normal and external auditory canals are clear. Oropharynx with no redness, swelling, or masses, exudates, or evidence of obstruction, uvula midline. Mucous membranes moist. Neck: Trachea midline, no thyromegaly or masses palpated, and no cervical lymphadenopathy. Supple, full range of motion without nuchal rigidity, or vertebral point tenderness. No Meningismus. Chest/axilla: Normal chest wall appearance and motion. Nontender with no deformity. No lesions are appreciated. Cardiovascular: Regular rate and rhythm with a normal S1 and S2. No gallops, murmurs, or rubs. Normal PMI, no JVD. No pulse deficits. Respiratory: Lungs have equal breath sounds bilaterally, clear to auscultation and percussion. No rales, rhonchi or wheezes noted. No increased work of breathing, no retractions or nasal flaring. Abdomen/GI: Soft, non-tender, with normal bowel sounds. No distension or tympany. No guarding or rebound. No evidence of tenderness throughout. Back: No spinal tenderness. No costovertebral tenderness. Full range of motion. Female : Normal external genitalia. Skin: Warm, dry with normal turgor. Normal color with no rashes, no lesions, and no evidence of cellulitis. MS/ Extremity: Pulses equal, no cyanosis. Neurovascular intact. Full, normal range of motion. Neuro: Awake and alert, GCS 15, oriented to person, place, time, and situation. Cranial nerves II-XII grossly intact. Motor strength 5/5 in all extremities. Sensory grossly intact. Cerebellar exam normal. Normal gait. Psych: Awake, alert, with orientation to person, place and time. Behavior, mood, and affect are within normal limits. 22:33 Musculoskeletal/extremity: DVT Exam: No signs of deep vein thrombosis. no pain, no swelling, no tenderness, negative Homans' sign noted on exam, no appreciated bluish discoloration, no erythema, no increased warmth. Vital Signs: 21:40 BP 149 / 129; Pulse 68; Resp 14; Temp 97.8; Pulse Ox 97% on R/A; Weight 68.04 kg; rr5 Height 5 ft. 2 in. (157.48 cm); Pain 0/10; 22:00 BP 134 / 97; Pulse 58; Resp 16; Pulse Ox 98% ; ea 22:30 BP 133 / 56; Pulse 57; Resp 16; Pulse Ox 100% on R/A; ea 23:25 BP 144 / 65; Pulse 62; Resp 17; Pulse Ox 99% ; rr5 03/30 00:30 BP 145 / 70; Pulse 60; Resp 19; Temp 98; Pulse Ox 100% ; rr5 01:30 BP 151 / 71; Pulse 58; Resp 13; Pulse Ox 99% on R/A; Pain 0/10; rr5 02:15 BP 149 / 76; Pulse 59; Resp 15; Pulse Ox 99% ; rr5 12/08 21:40 Body Mass Index 27.44 (68.04 kg, 157.48 cm) rr5 MDM: 12/08 21:47 Patient medically screened. [facility] 22:34 Data reviewed: vital signs, nurses notes, lab test result(s), EKG, radiologic studies, [facility] CT scan, plain films. 12/08 22:32 Order name: Basic Metabolic Panel; Complete Time: 23:29 [facility] 12/08 22:32 Order name: CBC with Diff; Complete Time: 23:29 [facility] 12/08 22:32 Order name: LFT's; Complete Time: 23:29 [facility] 12/08 22:32 Order name: Magnesium; Complete Time: 23:29 [facility] 12/08 22:32 Order name: NT PRO-BNP; Complete Time: 23:29 [facility] 12/08 22:32 Order name: PT-INR [facility] 12/08 22:32 Order name: Troponin (emerg Dept Use Only); Complete Time: 23:29 [facility] 12/08 22:32 Order name: Lipase; Complete Time: 23:29 [facility] 12/08 22:32 Order name: Urine Culture [facility] 12/08 22:32 Order name: D-Dimer; Complete Time: 23:42 [facility] 12/08 22:33 Order name: Protime (+INR); Complete Time: 23:42 [facility] 12/09 01:05 Order name: CBC with Automated Diff [facility] 12/09 01:05 Order name: CBC with Automated Diff [facility] 12/09 01:05 Order name: Comprehensive Metabolic Panel [facility] 12/08 22:32 Order name: XRAY Chest (1 view) [facility] 12/08 22:32 Order name: EKG; Complete Time: 22:33 [facility] 12/08 22:32 Order name: CT Head Brain wo Cont [facility] 12/08 23:42 Order name: CT Chest For PE Angio [facility] 12/09 01:04 Order name: CONS Pharmacy Consult [facility] 12/09 01:04 Order name: Heart Healthy [facility] 12/09 01:04 Order name: Echo with Doppler [facility] 12/09 01:04 Order name: Echo with Doppler [facility] 12/09 01:05 Order name: Comprehensive Metabolic Panel [facility] 12/09 01:05 Order name: Troponin I [facility] 12/09 01:05 Order name: Troponin I [facility] 12/09 01:05 Order name: Carotid Artery Bilateral [facility] 12/09 01:05 Order name: Carotid Artery Bilateral [facility] 12/08 22:32 Order name: Cardiac monitoring; Complete Time: 22:44 [facility] 12/08 22:32 Order name: EKG - Nurse/Tech; Complete Time: 22:51 [facility] 12/08 22:32 Order name: IV Saline Lock; Complete Time: 22:43 12/08 22:32 Order name: Labs collected and sent; Complete Time: 22:53 [facility] 12/08 22:32 Order name: O2 Per Protocol; Complete Time: 22:43 [facility] 12/08 22:32 Order name: O2 Sat Monitoring; Complete Time: 22:43 [facility] 12/08 22:32 Order name: Urine Dipstick-Ancillary (obtain specimen); Complete Time: 00:36 [facility] 12/08 22:48 Order name: Vital Signs; Complete Time: 22:53 [facility] 12/09 01:05 Order name: EKG Electrocardiogram [facility] 12/09 01:05 Order name: EKG Electrocardiogram [facility] 12/09 01:05 Order name: EKG Electrocardiogram [facility] Administered Medications: 22:43 Drug: NS 0.9% 500 ml Route: IV; Rate: bolus; Site: left antecubital; ea 23:52 Follow up: Response: No adverse reaction; IV Status: Completed infusion; IV Intake: rr5 500ml 12/09 00:00 Drug: NS 0.9% 1000 ml Route: IV; Rate: 125 ml/hr; Site: right antecubital; rr5 01:41 Follow up: Response: No adverse reaction; IV Status: Infusion continued upon admission; rr5 IV Intake: 250ml 00:34 Drug: Lovenox 1 mg/kg Route: Sub-Q; Site: right lower abdomen; rr5 01:40 Follow up: Response: No adverse reaction rr5 Disposition: 12/08/18 23:32 Hospitalization ordered by Karen Zuniga for Observation. Preliminary diagnosis are Syncope and collapse - near, Essential (primary) hypertension, Dyspnea. - Bed requested for Telemetry/MedSurg (observation). - Status is Observation. rr5 - Condition is Fair. - Problem is new. - Symptoms have improved. UTI on Admission? No Signatures: Dispatcher [employer] EDMS Blake, Jessie, RN Devin Mitchell MD MD cha Antunez, Elena, RN RN ea Roque, Raymond RN RN rr5 Corrections: (The following items were deleted from the chart) 01:12/08 23:32 Hospitalization Ordered by Karen Zuniga MD for Observation. Preliminary mw diagnosis is Syncope and collapse - near; Essential (primary) hypertension; Dyspnea. Bed requested for Telemetry/MedSurg (observation). Status is Observation. Condition is Fair. Problem is new. Symptoms have improved. UTI on Admission? No. [facility] 12/09 02:18 01:12/08/2018 23:32 Hospitalization Ordered by Karen Zuniga MD for Observation. rr5 Preliminary diagnosis is Syncope and collapse - near; Essential (primary) hypertension; Dyspnea. Bed requested for Telemetry/MedSurg (observation). Status is Observation. Condition is Fair. Problem is new. Symptoms have improved. UTI on Admission? No. mw
--- NOTE | 2018-12-08 23:32 | ER ---
Nurse's Notes [facility] Name: Wellington Wood Age: 88 yrs Sex: Female : 1930 Arrival Date: 12/08/2018 Time: 21:37 Bed 4 Private MD: Bk Westbrook Diagnosis: Syncope and collapse-near;Essential (primary) hypertension;Dyspnea Presentation: 12/08 21:40 Presenting complaint: EMS states: while she is brushing her teeth she step back and she rr5 said she is not feeling good almost pass out. assisted by her daughter to to bed. disoriented for 5 minutes, no LOC, no vomiting noted. 21:40 Transition of care: patient was not received from another setting of care. Onset of rr5 symptoms was December 08, 2018. Risk Assessment: Do you want to hurt yourself or someone else? Patient reports no desire to harm self or others. Initial Sepsis Screen: Does the patient meet any 2 criteria? No. Patient's initial sepsis screen is negative. Does the patient have a suspected source of infection? No. Patient's initial sepsis screen is negative. Note according to her daughter she almost fainted while going back to bed using her walker but she did not fell down, she is kind wobbly. patient has history of UTI 2-3 weeks ago given antibiotic and history of Alzheimer's. Care prior to arrival: None. 21:40 Method Of Arrival: EMS[facility] rr5 21:40 Acuity: ESE 3 rr5 21:40 Note from EMS BP 156/64 to 117/ on orthostatic BP taking, HR 58-64 bpm with PVC. rr5 Historical: - Allergies: 21:40 PENICILLINS; rr5 - Home Meds: 21:40 amlodipine 10 mg tab 1 tab once daily [Active]; Vitamin D-3 with Aloe 120-1,000-10 rr5 mg-unit-mg Oral tab [Active]; losartan 100 mg Oral tab 1 tab once daily [Active]; prevagen [Active]; multivitamins with iron [Active]; Namzaric 28-10 mg Oral CSpX 1 cap once daily [Active]; metoprolol tartrate 100 mg Oral tab 1 tab once daily [Active]; pravastatin 40 mg Oral tab 1 tab once daily [Active]; Evista 60 mg Oral tab 1 tab once daily [Active]; omeprazole 20 mg Oral TbEC daily [Active]; Skelaxin 800 mg Oral tab 1 tab daily [Active]; Colace 50 mg Oral cap 1 cap 2 times per day [Active]; Aricept 10 mg Oral tab [Active]; aspirin 81 mg Oral TbEC 1 tab once daily [Active]; - PMHx: 21:40 Dementia; High Cholesterol; Hypertension; Alzheimers; rr5 - PSHx: 21:40 Heart stents; Hysterectomy; lumbar surgery; rr5 - Immunization history:: Adult Immunizations up to date. - Social history:: Smoking status: Patient/guardian denies using tobacco, Patient/guardian denies using alcohol, street drugs. - Ebola Screening: : Patient negative for fever greater than or equal to 101.5 degrees Fahrenheit, and additional compatible Ebola Virus Disease symptoms Patient denies exposure to infectious person Patient denies travel to an Ebola-affected area in the 21 days before illness onset. - Family history:: not pertinent. Screenin:45 Abuse screen: Denies threats or abuse. Denies injuries from another. Nutritional rr5 screening: No deficits noted. Tuberculosis screening: No symptoms or risk factors identified. Fall Risk Secondary diagnosis (15 points) Alzheimer's, dementia, IV access (20 points). Mental Status- Overestimates/Forgets Limitations (15 pts.). Total Best Fall Scale indicates High Risk Score (45 or more points). Fall prevention measures have been instituted. Side Rails Up X 2 Placed Close to Nursing Station Frequent Obs/Assessments Occuring Family Present and informed to notify staff if the need to leave the bedside As available patient and family educated on Fall Prevention Program and Strategies. Assessment: 21:40 General: Appears in no apparent distress. comfortable, Behavior is calm, cooperative. rr5 Pain: Denies pain. Neuro: Level of Consciousness is awake, alert, obeys commands, Oriented to person, place, history of Alzheimer's . Facial symmetry appears normal, Pupils are PERRLA, Reports a syncopal episode weakness. 21:40 Cardiovascular: Capillary refill < 3 seconds Patient's skin is warm and dry. rr5 Respiratory: Airway is patent Respiratory effort is even, unlabored, Respiratory pattern is regular, symmetrical. GI: No signs and/or symptoms were reported involving the gastrointestinal system. : No signs and/or symptoms were reported regarding the genitourinary system. EENT: No signs and/or symptoms were reported regarding the EENT system. Derm: Skin is intact, Skin temperature is warm. Musculoskeletal: Capillary refill < 3 seconds, Range of motion: intact in all extremities. 22:56 Reassessment: Pt taken to CT. ea 23:25 Reassessment: Patient appears in no apparent distress at this time. Patient is alert, rr5 oriented x 3, equal unlabored respirations, skin warm/dry/pink. awaiting for results of the work up. no complaints made. 12/09 00:30 Reassessment: Patient appears in no apparent distress at this time. No changes from rr5 previously documented assessment. Patient and/or family updated on plan of care and expected duration. Pain level reassessed. explained patient is for admission, the patient and mail processing machine operator agreed. 01:40 Reassessment: Patient appears in no apparent distress at this time. went to CT scan for rr5 CT angio chest. 02:00 Reassessment: Patient appears in no apparent distress at this time. No changes from rr5 previously documented assessment. back from CT scan. for transfer to 4th floor, no complaints made, vitally stable. Vital Signs: 12/08 21:40 BP 149 / 129; Pulse 68; Resp 14; Temp 97.8; Pulse Ox 97% on R/A; Weight 68.04 kg; rr5 Height 5 ft. 2 in. (157.48 cm); Pain 0/10; 22:00 BP 134 / 97; Pulse 58; Resp 16; Pulse Ox 98% ; ea 22:30 BP 133 / 56; Pulse 57; Resp 16; Pulse Ox 100% on R/A; ea 23:25 BP 144 / 65; Pulse 62; Resp 17; Pulse Ox 99% ; rr5 12/09 00:30 BP 145 / 70; Pulse 60; Resp 19; Temp 98; Pulse Ox 100% ; rr5 01:30 BP 151 / 71; Pulse 58; Resp 13; Pulse Ox 99% on R/A; Pain 0/10; rr5 02:15 BP 149 / 76; Pulse 59; Resp 15; Pulse Ox 99% ; rr5 12/08 21:40 Body Mass Index 27.44 (68.04 kg, 157.48 cm) rr5 ED Course: 12/08 21:37 Patient arrived in ED. am2 21:37 Bk Westbrook MD is Private Physician. am2 21:40 Maintain EMS IV. Dressing intact. Good blood return noted. Site clean \T\ dry. Gauge \T\ rr 5 site: G22 left AC. 21:42 Ciro Rangel RN is Primary Nurse. rr5 21:45 Arm band placed on right wrist. rr5 21:47 Devin Zhao MD is Attending Physician. sammi 21:50 Patient has correct armband on for positive identification. Placed in gown. Bed in low rr5 position. Call light in reach. Side rails up X2. case monitor on. Pulse ox on. NIBP on. 21:53 Triage completed. rr5 22:[address] via stretcher. vr 22:45 Inserted saline lock: 20 gauge in right antecubital area, using aseptic technique. rr5 Blood collected. 23:02 CT Head Brain wo Cont In Process Unspecified. EDMS 23:24 X-ray completed. Portable x-ray completed in exam room. Patient tolerated procedure sg4 well. 23:31 XRAY Chest (1 view) In Process Unspecified. EDMS 23:31 Karen Zuniga MD is Hospitalizing Provider. sammi 03 01:38 No provider procedures requiring assistance completed. Patient admitted, IV remains in rr5 place. intact, bleeding controlled, No redness/swelling at site. Administered Medications: 12/08 22:43 Drug: NS 0.9% 500 ml Route: IV; Rate: bolus; Site: left antecubital; ea 23:52 Follow up: Response: No adverse reaction; IV Status: Completed infusion; IV Intake: rr5 500ml 12/09 00:00 Drug: NS 0.9% 1000 ml Route: IV; Rate: 125 ml/hr; Site: right antecubital; rr5 01:41 Follow up: Response: No adverse reaction; IV Status: Infusion continued upon admission; rr5 IV Intake: 250ml 00:34 Drug: Lovenox 1 mg/kg Route: Sub-Q; Site: right lower abdomen; rr5 01:40 Follow up: Response: No adverse reaction rr5 Intake: 12/08 23:52 IV: 500ml; Total: 500ml. rr5 12/09 01:41 IV: 250ml; Total: 750ml. rr5 Output: 00:20 Urine: 200ml (Voided); Total: 200ml. rr5 Outcome: 12/08 23:32 Decision to Hospitalize by Provider. sammi 12/09 01:35 Admitted to Tele accompanied by tech, via stretcher, room 415, with chart, Report rr5 called to logan Condition: stable Instructed on the need for admit. 02:18 Patient left the ED. rr5 Signatures: Dispatcher [employer] EDDevin Marlow MD MD cha Davis, Victoria vr Moreno, Amanda am2 Antunez, Elena, RN RN Jade Bangura Raymond, RN RN rr5
[2018-12-09] MEDS ORDERED: ENOXAPARIN 80 MG/0.8 ML SQ ONE (00:06)
[2018-12-09] MEDS ORDERED: MORPHINE 2 MG/ML SYR IV PRN (00:59)
[2018-12-09] MEDS ORDERED: ONDANSETRON 4 MG/2 ML VIAL IV PRN (00:59)
[2018-12-09] MEDS ORDERED: ACETAMINOPHEN 500 MG TAB PO PRN (00:59)
[2018-12-09] MEDS: NA CHLORIDE 0.9% 1,000 ML IV SCH ×2 (03:21→10:51)
[2018-12-09 04:42] VITALS: BMI 23.8
--- NOTE | 2018-12-09 07:50 | P.HP ---
Certification for Inpatient Patient admitted to: Observation With expected LOS: <2 Midnights Patient will require the following post-hospital care: None Practitioner: I am a practitioner with admitting privileges, knowledge of patient current condition, hospital course, and medical plan of care. Services: Services provided to patient in accordance with Admission requirements found in Title 42 Section 412.3 of the Code of Federal Regulations Patient History Date of Service: 12/09/18 Reason for admission: Near syncopal event History of Present Illness: Patient is an 88-year-old female who came to the hospital after almost falling. Patient was brushing her T and while doing this she almost passed out. She had not been feeling good for the last day. Her daughter was able to assist her back into bed. Patient is clinically doing okay. Feeling much better. She was able to get up out of bed and ambulate without any issues. Will try get physical therapy evaluation along with carotid Doppler and echocardiogram. Will check orthostatics vital signs as well. The patient is clinically doing much better possible discharge home later today. Allergies Penicillins Allergy (Verified 12/18/15 23:43) Hives Home Medications: Amlodipine [Norvasc*] 10 mg PO DAILY 12/18/15 Metoprolol Tartrate [Lopressor] 100 mg PO DAILY 12/18/15 Omeprazole [Prilosec] 20 mg PO DAILY 12/18/15 Raloxifene HCl [Evista*] 60 mg PO DAILY 12/18/15 Memantine HCl/Donepezil HCl [Namzaric 28 mg-10 mg Capsule] 1 tab PO DAILY Pravastatin [Pravachol*] 1 tab PO DAILY 05/11/16 Vit D 3,000 iu PO DAILY 05/11/16 Iron/FA/Vit B-Com W/C [Hemocyte Plus*] 1 tab PO DAILY WITH BREAKFAST tab Docusate [Colace Cap] 100 mg PO DAILYPRN PRN 12/09/18 Donepezil HCl [Aricept] 10 mg PO DAILY 12/09/18 Losartan Potassium 100 mg PO DAILY 12/09/18 - Past Medical/Surgical History Has patient received pneumonia vaccine in the past: Yes Diabetic: No -: HTN -: DEMENTIA -: CAD -: Stess test 2015 -: HYSTERECTOMY -: BACK SX -: TONSILLECTOMY -: Coronary Stent - Family History Father Medical History: Hypertension - Social History Smoking Status: Never smoker Alcohol use: No CD- Drugs: No Caffeine use: Yes Place of Residence: Home Review of Systems 10-point ROS is otherwise unremarkable Physical Examination - Vital Signs Temperature: 96.9 F Blood Pressure: 145/85 Pulse: 63 Respirations: 17 Pulse Ox (%): 96 - Physical Exam General: Alert, In no apparent distress, Oriented x3 HEENT: Atraumatic, PERRLA, Mucous membr. moist/pink, EOMI, Sclerae nonicteric Neck: Supple, 2+ carotid pulse no bruit, No LAD, Without JVD or thyroid abnormality Respiratory: Clear to auscultation bilaterally, Normal air movement Cardiovascular: Regular rate/rhythm, Normal S1 S2 Gastrointestinal: Normal bowel sounds, Soft and benign, Non-distended, No tenderness Musculoskeletal: No clubbing, No swelling, No tenderness Integumentary: No rashes Neurological: Normal gait, Normal speech, Normal strength at 5/5 x4 extr, Normal tone, Sensation intact, Cranial nerves 3-12 intact, Normal affect Lymphatics: No axilla or inguinal lymphadenopathy - Studies Laboratory Data (last 24 hrs) 12/08/18 22:50: WBC 9.4, Hgb 13.8, Hct 40.7, Plt Count 215 12/08/18 22:50: Sodium 143, Potassium 3.9, BUN 17, Creatinine 1.15, Glucose 110 H, Magnesium 2.0, Total Bilirubin 0.4, AST 15, ALT 14, Alkaline Phosphatase 167 H, Lipase 232 12/08/18 22:10: PT 12.6 H, INR 1.07 Assessment & Plan - Problems (Diagnosis) (1) HTN (hypertension) Current Visit: No Status: Acute Qualifiers: (2) Hyponatremia Current Visit: No Status: Acute (3) Syncope Onset Date: 05/12/16 Current Visit: No Status: Acute - Plan Plan: 1. Echocardiogram and carotid Doppler 2. IV hydration 3. Physical therapy evaluation 4. Monitor electrolytes 5. monitor patient on telemetry for any arrhythmias 6. GI and DVT prophylaxis Discharge Plan: Home Plan to discharge in: 24 Hours - Advance Directives Does patient have a Living Will: No Does patient have a Durable POA for Healthcare: No - Code Status/Comfort Care Code Status Assessed: Yes Code Status: Full Code Critical Care: No Time Spent Managing PTS Care (In Minutes): 40
[2018-12-09] MEDS ORDERED: DOCUSATE NA 100 MG CAP PO PRN (08:50)
[2018-12-09] MEDS: AMLODIPINE 10 MG TAB PO SCH (08:58)
[2018-12-09] MEDS: LOSARTAN POTASSIUM 50 MG TABLET PO SCH (08:58)
[2018-12-09] MEDS ORDERED: HOME MED 1 EA UNK (Losartan Potassium [Losartan Potassium] 100 MG) PO SCH (09:00)
[2018-12-09] MEDS ORDERED: HOME MED 1 EA UNK (Omeprazole [Prilosec] 20 MG) PO SCH (09:00)
[2018-12-09] MEDS ORDERED: HOME MED 1 EA UNK (Metoprolol Tartrate [Lopressor] 100 MG) PO SCH (09:00)
[2018-12-09] MEDS: HOME MED 1 EA UNK (Memantine Hcl/Donepezil Hcl [Namzaric 28 Mg-10 Mg Capsule] 1 TAB) PO SCH (09:00)
--- NOTE | 2018-12-09 10:21 | RAD REPORT ---
EXAM DESCRIPTION: RAD - Chest Single View - 12/08/2018 11:30 pm CLINICAL HISTORY: COUGH Chest pain. COMPARISON: Chest Single View dated 09/04/2018; Chest Single View dated 07/30/2016; Chest Single Vie w dated 01/08/2016; Chest Single View dated 12/18/2015 FINDINGS: Portable technique limits examination quality. The lungs are grossly clear. The heart is normal in size. No displaced fractures.Aortic atheroscleros is noted. IMPRESSION: No acute intrathoracic process suspected.
[2018-12-09] MEDS: DONEPEZIL HCL 5 MG TAB PO SCH (10:51)
--- NOTE | 2018-12-09 12:53 | P.PN ---
Subjective Date of Service: 12/09/18 Chief Complaint: Near syncopal event Subjective: No C/O voiced, Tolerating diet, Working w/ PT, Doing well Review of Systems 10-point ROS is otherwise unremarkable Physical Examination - Vital Signs Temperature: 97.0 F Blood Pressure: 142/68 Pulse: 73 Respirations: 18 Pulse Ox (%): 98 - Physical Exam General: Alert, In no apparent distress HEENT: Atraumatic, PERRLA, EOMI Neck: Supple, JVD not distended Respiratory: Clear to auscultation bilaterally, Normal air movement Cardiovascular: Regular rate/rhythm, Normal S1 S2 Gastrointestinal: Normal bowel sounds, No tenderness Musculoskeletal: No tenderness Integumentary: No rashes Neurological: Normal speech, Normal tone, Normal affect Lymphatics: No axilla or inguinal lymphadenopathy - Studies Laboratory Data (last 24 hrs) 12/08/18 22:50: WBC 9.4, Hgb 13.8, Hct 40.7, Plt Count 215 12/08/18 22:50: Sodium 143, Potassium 3.9, BUN 17, Creatinine 1.15, Glucose 110 H, Magnesium 2.0, Total Bilirubin 0.4, AST 15, ALT 14, Alkaline Phosphatase 167 H, Lipase 232 12/08/18 22:10: PT 12.6 H, INR 1.07 Medications List Reviewed: Yes Assessment And Plan - Current Problems (Diagnosis) (1) Syncope Onset Date: 05/12/16 Current Visit: No Status: Acute Plan: Syncopal Episode most likely 2.2 to Generalized Weakness. -Head CT negative -Cardotid Doppler negative. Awaiting ECHO results -Lab work WNL -pending orthostatics as well -PT/OT consulted. -Awaiting ECHO and PT evaluation Qualifiers: Syncope type: vasovagal syncope Qualified Code(s): R55 - Syncope and collapse (2) HTN (hypertension) Current Visit: No Status: Chronic Plan: Restarted back on Home medication Qualifiers: Hypertension type: essential hypertension Discharge Plan: Home Plan to discharge in: Greater than 2 days - Code Status/Comfort Care Code Status Assessed: Yes Critical Care: No
[2018-12-09] MEDS: ATORVASTATIN 10 MG TAB PO SCH (21:58)
[2018-12-10] MEDS ORDERED: METOPROLOL XL 100 MG TAB PO ONE (04:41)
[2018-12-10] MEDS: PANTOPRAZOLE 40MG TABLET PO SCH (05:31)
[2018-12-10 05:54] LABS: Absolute Lymphocytes (CBC) 3.2 K/uL (0.7-4.9); Absolute Monocytes 0.5 K/uL (0.1-1.3); Absolute Neutrophil 2.5 K/uL (1.8-8.0); Basophils % 0.4 % (0-1.3); Eosinophils % 2.1 % (0-4.4); Hematocrit 36.2 % (36.0-45.0); Lymphocytes % 49.7 % (15.3-44.8); MPV 10.2 fL (7.6-11.3); Monocytes % 8.5 % (3.3-12.3); RBC Red Blood Cell Count 4.08 M/uL (3.86-4.86)
[2018-12-10 06:22] LABS: Albumin 2.9 g/dL (3.4-5.0); Bilirubin Total 0.3 mg/dL (0.2-1.0); Potassium 3.6 mmol/L (3.5-5.1); Protein, Total 5.9 g/dL (6.4-8.2)
[2018-12-10 08:10] LABS: Blood Morphology Comment NOT SEEN (NOT SEEN); Platelet Estimate ADEQ
[2018-12-10] MEDS: HOME MED 1 EA UNK (Memantine Hcl/Donepezil Hcl [Namzaric 28 Mg-10 Mg Capsule] 1 TAB) PO SCH (09:00)
[2018-12-10] MEDS: DONEPEZIL HCL 5 MG TAB PO SCH (09:41)
[2018-12-10] MEDS: LOSARTAN POTASSIUM 50 MG TABLET PO SCH (09:41)
[2018-12-10] MEDS: FE SULF/FA/VIT B COMP & C TAB PO SCH (09:41)
[2018-12-10] MEDS: AMLODIPINE 10 MG TAB PO SCH (09:41)
--- NOTE | 2018-12-10 09:45 | P.PN ---
Subjective Date of Service: 12/10/18 Chief Complaint: Near syncopal event Subjective: Tolerating diet, Ambulating, Improving, Working w/ PT, Doing well Review of Systems 10-point ROS is otherwise unremarkable Physical Examination - Vital Signs Temperature: 97.6 F Blood Pressure: 182/83 Pulse: 65 Respirations: 16 Pulse Ox (%): 97 - Physical Exam General: Alert, In no apparent distress HEENT: Atraumatic, PERRLA, EOMI Neck: Supple, JVD not distended Respiratory: Clear to auscultation bilaterally, Normal air movement Cardiovascular: Regular rate/rhythm, Normal S1 S2 Gastrointestinal: Normal bowel sounds, No tenderness Musculoskeletal: No tenderness Integumentary: No rashes Neurological: Normal speech, Normal tone, Normal affect Lymphatics: No axilla or inguinal lymphadenopathy - Studies Microbiology Data (last 24 hrs): 12/09/18 00:30 Clean Catch Urine [place] Count - Final BETWEEN 10,000 & 100,000 CFU/ML 12/09/18 00:30 Clean Catch Urine - Final MIXED [place]. Medications List Reviewed: Yes Assessment And Plan - Current Problems (Diagnosis) (1) Syncope Onset Date: 05/12/16 Current Visit: No Status: Acute Plan: Syncopal Episode most likely 2.2 to Generalized Weakness. -Head CT negative,Lab work WNL -Cardotid Doppler and ECHO pending at this time -PT/OT consulted. Reccs Appreciated -May need HH or Placement at discharge Qualifiers: Syncope type: vasovagal syncope Qualified Code(s): R55 - Syncope and collapse (2) HTN (hypertension) Current Visit: No Status: Chronic Plan: Restarted back on Home medication Qualifiers: Hypertension type: essential hypertension Discharge Plan: Home Plan to discharge in: 48 Hours - Code Status/Comfort Care Code Status Assessed: Yes Critical Care: No
[2018-12-10] MEDS: ATORVASTATIN 10 MG TAB PO SCH (20:43)
--- NOTE | 2018-12-10 20:50 | RAD REPORT ---
EXAM DESCRIPTION: - CP - 12/10/2018 8:07 pm CLINICAL HISTORY: Syncope COMPARISON: None. TECHNIQUE: Real-time sonographic evaluation of both carotid systems was performed. Prakash scale and Do ppler interrogation were performed with waveform tracing bilaterally. FINDINGS: Normal high resistance waveforms are noted in both external carotid arteries. The common c arotid arteries and internal carotid arteries show normal low resistance waveforms. Significant calcified plaquing changes are present in each carotid bulb findings are more pronounced on the right. Peak systolic and end-diastolic velocity values fall within a normal range. Findings ar e generally elevated on the right compared to the left. The ICA/CCA ratio is increased on the right a nd 1.9 with the left measuring 0.8. Antegrade flow seen in both vertebral arteries. Velocity values and ratios were recorded and are retained in the patient's imaging records. IMPRESSION: Right greater than left calcified and noncalcified plaquing changes. Although the velocity values are not elevated, the visual inspection and elevated ICA/ CCA ratio woul d indicate a significant stenosis on the right.
[2018-12-11] MEDS: PANTOPRAZOLE 40MG TABLET PO SCH (06:09)
[2018-12-11] MEDS: DONEPEZIL HCL 5 MG TAB PO SCH (08:33)
[2018-12-11] MEDS: LOSARTAN POTASSIUM 50 MG TABLET PO SCH (08:33)
[2018-12-11] MEDS: FE SULF/FA/VIT B COMP & C TAB PO SCH (08:33)
[2018-12-11] MEDS: AMLODIPINE 10 MG TAB PO SCH (08:33)
--- NOTE | 2018-12-11 10:49 | ECHO ---
HEIGHT: 5 ft 5 in WEIGHT: 142 lb 14.4 oz DATE OF STUDY: 12/11/[address]: Karen Zuniga MD 2-DIMENSIONAL: YES M.MODE: YES DOPPLER: YES COLOR FLOW: YES TDS: PORTABLE: DEFINITY: BUBBLE STUDY: DIAGNOSIS: SYNCOPE CARDIAC HISTORY: CATHERIZATION: SURGERY: PROSTHETIC VALVE: PACEMAKER: MEASUREMENTS (cm) DIASTOLIC (NORMALS) SYSTOLIC (NORMALS) IVSd 0.9 (0.6-1.2) LA Diam 4.0 (1.9-4.0) LVEF 64% LVIDd 4.0 (3.5-5.7) LVIDs 2.6 (2.0-3.5) %FS 35% LVPWd 1.1 (0.6-1.2) Ao Diam 2.5 (2.0-3.7) 2 DIMENSIONAL ASSESSMENT: RIGHT ATRIUM: NORMAL LEFT ATRIUM: NORMAL RIGHT VENTRICLE: NORMAL LEFT VENTRICLE: NORMAL TRICUSPID VALVE: NORMAL MITRAL VALVE: NORMAL PULMONIC VALVE: NORMAL AORTIC VALVE: NORMAL PERICARDIAL EFFUSION: NONE AORTIC ROOT: NORMAL LEFT VENTRICULAR WALL MOTION: DOPPLER/COLOR FLOW: TRACE AORTIC REGURGITATION. MILD TRICUSPID REGURGITATION. ESTIMATED RIGHT VENTRICULAR SYSTOLIC PRESSURE 38 mmHg (MILD PULMONARY HYPERTENSION). COMMENTS: TECHNOLOGIST: JOHNSON IBARRA
[2018-12-11 10:55] VITALS: O2SAT 98
--- NOTE | 2018-12-11 11:39 | RAD REPORT ---
EXAM DESCRIPTION: CT Angiography Chest With Intravenous Contrast CLINICAL HISTORY: The patient is 88 years old and is Female; DYSPNEA TECHNIQUE: Axial computed tomographic angiography images of the chest with intravenous contrast usin pulmonary embolism protocol. Sagittal and coronal reformatted images were created and reviewed. Sagittal and coronal reformatted images were created and reviewed. This CT exam was performed usin one or more of the following dose reduction techniques: automated exposure control, adjustment of the mA and/or kV according to patient size, and/or use of iterative reconstruction technique. MIP reconstructed images were created and reviewed. COMPARISON: No relevant prior studies available. FINDINGS: PULMONARY ARTERIES: There are no obvious filling defects identified within the pulmonary arteries to suggest pulmonary embolism. AORTA: Atherosclerosis of the aorta is present. No thoracic aortic aneurysm. LUNGS: Large calcified granuloma in the right lower lobe is present. Minimal dependent densities in the lung bases are present. No mass. Scarring within the lung apices is present. PLEURAL SPACE: Unremarkable. No significant effusion. No pneumothorax. HEART: Unremarkable. No cardiomegaly. No significant pericardial effusion. No evidence of RV dysfunction. MEDIASTINUM: A small hiatal hernia is present. BONES/JOINTS: There are degenerative changes of the bones. No acute fracture. No dislocation . SOFT TISSUES: Unremarkable. LYMPH NODES: Unremarkable. No enlarged lymph nodes. LIVER: Multiple hepatic granuloma are present. GALLBLADDER AND BILE DUCTS: Surgical clips are present in the right upper quadrant, consistent w ith previous cholecystectomy. SPLEEN: Multiple splenic granuloma are present. IMPRESSION: No evidence of pulmonary embolism. Electronically signed by: Sepideh Flores MD 12/09/2018 2:22 AM CDT Due to temporary technical issues with the PACS/Fluency reporting system, reports are being signed by the in house radiologist as a courtesy to ensure prompt reporting. The interpreting radiologist is f ully responsible for the content of the report.
--- NOTE | 2018-12-11 11:58 | RAD REPORT ---
EXAM DESCRIPTION: CT Head Without Intravenous Contrast CLINICAL HISTORY: The patient is 88 years old and is Female; Dizziness;Syncope TECHNIQUE: Axial computed tomography images of the head/brain without intravenous contrast. Sagitt al and coronal reformatted images were created and reviewed. This CT exam was performed using one o r more of the following dose reduction techniques: automated exposure control, adjustment of the mA and/or kV according to patient size, and/or use of iterative reconstruction technique. COMPARISON: No relevant prior studies available. FINDINGS: BRAIN: There is diffuse cerebral atrophy present, consistent with this patient's age. There is patchy hypoattenuation of the deep white matter which is non-specific, but most likely owing to chronic small vessel ischemic change in a patient of this age group. No intracranial hemorrhage , mass effect, or midline shift is seen. There are no extra-axial fluid collections. VENTRICLES: There is diffuse prominence of the ventricles, which is likely related to central at rophy. BONES/JOINTS: No acute fracture. SOFT TISSUES: Unremarkable. SINUSES: Unremarkable as visualized. No acute sinusitis. MASTOID AIR CELLS: Unremarkable as visualized. No mastoid effusion. IMPRESSION: Age-related atrophy and chronic white matter ischemic changes, with no evidence of an ac [place] intracranial abnormality. Electronically signed by: Sepideh Flores MD 12/08/2018 11:09 PM CDT Due to temporary technical issues with the PACS/Fluency reporting system, reports are being signed by the in house radiologist as a courtesy to ensure prompt reporting. The interpreting radiologist is f ully responsible for the content of the report.
[2018-12-11 14:34] VITALS: BP 133/64; TEMP 97
--- NOTE | 2018-12-12 18:45 | P.DS ---
Admission Date: 12/09/18 Discharge Date: 12/12/18 Disposition: ROUTINE DISCHARGE Discharge Condition: FAIR Reason for Admission: Near syncopal event Brief History of Present Illness: see hc Hospital Course: Patient is an 88-year-old female who came to the hospital after almost falling. Patient was brushing her T and while doing this she almost passed out pt was admitted for syncope and had ECHO,carotid doppler done ECHO TRACE AORTIC REGURGITATION. MILD TRICUSPID REGURGITATION. ESTIMATED RIGHT VENTRICULAR SYSTOLIC PRESSURE 38 mmHg (MILD PULMONARY HYPERTENSION). EF 60 % carotid doppler reviewe by DR Carlin no significant stenosis on the day discharge pt is clinically and hemodynimically stable pt was managed for: (1) Syncope Syncopal Episode most likely 2.2 to Generalized Weakness. -Head CT negative,Lab work WNL -PT/OT consulted. Reccs Appreciated (2) HTN (hypertension) Restarted back on Home medication discharge diet:low sodium activity as tolerated f/up with pcp for continuation of care f/up with cardiology in 1-2 week Vital Signs/Physical Exam: Temp Pulse Resp BP Pulse Ox 97.0 F 71 18 133/64 97 12/11/18 12:00 12/11/18 12:00 12/11/18 12:00 12/11/18 12:00 12/11/18 12:00 Laboratory Data at Discharge: WBC 6.4 K/uL (4.3-10.9) D 12/10/18 05:27 Hgb 12.3 g/dL (12.0-15.0) 12/10/18 05:27 Hct 36.2 % (36.0-45.0) 12/10/18 05:27 Plt Count 184 K/uL (152-406) 12/10/18 05:27 PT 12.6 SECONDS (9.5-12.5) H 12/08/18 22:10 INR 1.07 12/08/18 22:10 Sodium 145 mmol/L (136-145) 12/10/18 05:27 Potassium 3.6 mmol/L (3.5-5.1) 12/10/18 05:27 BUN 16 mg/dL (7-18) 12/10/18 05:27 Creatinine 1.10 mg/dL (0.55-1.3) 12/10/18 05:27 Glucose 91 mg/dL (74-106) 12/10/18 05:27 Magnesium 2.0 mg/dL (1.8-2.4) 12/08/18 22:50 Total Bilirubin 0.3 mg/dL (0.2-1.0) 12/10/18 05:27 AST 11 U/L (15-37) L 12/10/18 05:27 ALT 11 U/L (12-78) L 12/10/18 05:27 Alkaline Phosphatase 122 U/L (45-117) H 12/10/18 05:27 Troponin I < 0.02 ng/mL (0.0-0.045) 12/09/18 05:34 Lipase 232 U/L (73-393) 12/08/18 22:50 Home Medications: Amlodipine [Norvasc*] 10 mg PO DAILY 12/18/15 Omeprazole [Prilosec] 20 mg PO DAILY 12/18/15 Raloxifene HCl [Evista*] 60 mg PO DAILY 12/18/15 Memantine HCl/Donepezil HCl [Namzaric 28 mg-10 mg Capsule] 1 tab PO DAILY Pravastatin [Pravachol*] 1 tab PO DAILY 05/11/16 Vit D 3,000 iu PO DAILY 05/11/16 Iron/FA/Vit B-Com W/C [Hemocyte Plus*] 1 tab PO DAILY WITH BREAKFAST tab Docusate [Colace Cap*] 100 mg PO DAILYPRN PRN 12/09/18 Donepezil HCl [Aricept] 10 mg PO DAILY 12/09/18 Amlodipine [Norvasc*] 10 mg PO DAILY tab 12/11/18 Losartan Potassium [Cozaar*] 100 mg PO DAILY tablet 12/11/18 Patient Discharge Instructions: f/up with PCP for continutation of care Followup: Yaniv Levin MD [ACTIVE - CAN ADMIT] - (per scheduled appointment) Bk Westbrook MD [Primary Care Provider] - 2-3 Days (Call to schedule an appointment)
== END 2018-12-11 16:32 | disposition home or self-care (01) ==
LOC: ER 21:33 → ERHOLD 12-09 01:00 → 4TH 12-09 01:42
PROVIDERS: ADMIT Hospitalist; ATTEND Hospitalist
DX: R55 Syncope and collapse (principal); I10 Essential (primary) hypertension; I25.10 Atherosclerotic heart disease of native coronary artery without angina pectoris; E87.1 Hypo-osmolality and hyponatremia; Z95.5 Presence of coronary angioplasty implant and graft; Z88.0 Allergy status to penicillin
CPT/HCPCS: 96361; 93306; 87088; 85025 ×2; 87086; 80048; 36415 ×2; 83735; 85610; 85379; 80076; 84484 ×2; 83690; 80053; 83880; 70450; 71275; 71045; 93880; 97116 ×2; 97162; 97530; 96360; 96372; 99285; Q9967; J1650; J7030 ×2; G0378 ×2